=== PATIENT | female | born 1950 | race Two or more races ===

== ENCOUNTER 2020-12-27 10:23 | Inpatient (IN) | payer OTHER ==
[~2020-12-27] VITALS: Ht 154.9 cm; Wt 75.3 kg
[2020-12-27] MEDS ORDERED: ATACAND32 MG PO (10:43)
[2020-12-27] MEDS ORDERED: ZOLOFT50 MG PO (10:44)
[2020-12-27] MEDS ORDERED: CLONAZEPAM1 MG PO (10:44)
[2020-12-27] MEDS ORDERED: SYNTHROID88 MCG PO (10:44)
[2020-12-27] MEDS ORDERED: SIMVASTATIN10 MG PO (10:44)
[2020-12-27] MEDS ORDERED: ANTIVERT PO (10:45)
[2021-01-01] MEDS ORDERED: BACLOFEN20 MG (08:23)
[2021-01-01] MEDS ORDERED: MECLIZINE HCL25 MG (08:23)
[2021-01-01] MEDS ORDERED: COLESTIPOL HCL1 GM (08:23)
[2021-01-01] MEDS ORDERED: DICLOFENAC POTA50 MG (08:23)
[2021-01-01] MEDS ORDERED: SIMVASTATIN40 MG (08:24)
[2021-01-01] MEDS ORDERED: VITAMIN D3250 MCG (08:24)
[2021-01-01] MEDS ORDERED: PENTOXIFYLLINE400 MG (08:24)
[2021-01-01] MEDS ORDERED: ZOFRAN8 MG PO (10:07)
[2021-01-01] MEDS ORDERED: ACETAMINOPHEN-1 EAC2 PO (10:07)
[2021-01-01] MEDS ORDERED: COLACE100 MG PO (10:07)
[2021-01-01] MEDS ORDERED: MEDROLPACK PO (10:07)
== END 2021-01-02 14:36 | disposition home or self-care (01) | DRG 473 ==
LOC: O/R 01-01 06:24 → SURH 01-01 11:00
PROVIDERS: ADMIT Orthopaedic Surgery Orthopaedic Surgery of the Spine; ATTEND Orthopaedic Surgery Orthopaedic Surgery of the Spine
PROC: 07DS0ZZ Extraction of Vertebral Bone Marrow, Open Approach (ICD-10-PCS; 2021-01-01)
PROC: 0RG20A0 Fusion of 2 or more Cervical Vertebral Joints with Interbody Fusion Device, Anterior Approach, Anterior Column, Open Approach (ICD-10-PCS; principal; 2021-01-01 13:30)
DX: M50.023 Cervical disc disorder at C6-C7 level with myelopathy (principal)